=== PATIENT | female | born 1960 | race Caucasian/White ===

== ENCOUNTER 2017-10-14 13:57 | Inpatient (IN) | payer BC ==
[~2017-10-14] VITALS: Ht 165.1 cm; Wt 107.5 kg
[~2017-10-14 13:57] MED LIST: ADULT LOW DOSE81 M1 PO; BACTRIM,SEPT1 TABLE1 PO; CATAPRES0.2 MG PO; CELEXA20 MG PO; HYDROCHLOROTHIA25 MG PO; JANUMET 50/11 TABLET PO; LANTUS100 UNIT/1 SQ; LEVO-T75 MCG PO; LISINOPRIL20 MG PO; PERCOCET 5/31 TABLET PO; PRAVACHOL40 MG PO; PYRIDIUM100 MG PO; ULTRAM50 MG PO; VERAPAMIL HCL120 MG PO; WELCHOL625 MG PO
[2017-10-14 14:29] LABS: HEMATOCRIT 33.8 % (36.0-46.0); HEMOGLOBIN 11.7 G/DL (11.9-15.5); MCH 29.3 PG (29.0-34.0); MCHC 34.6 G/DL (30.0-36.0); MCV 84.7 FL (83-99); PLATELET COUNT 331 K/uL (156-360); RBC DIS.WIDTH-CV 13.2 % (11.8-14.6); RBC DIS.WIDTH-SD 40.1 % (39-53); RED BLOOD COUNT 3.99 M/uL (3.80-5.20); WHITE BLOOD COUNT 20.9 K/uL (4.1-10.2)
[2017-10-14 14:33] LABS: CARBON DIOXIDE (BICARBONATE) 20.7 MEQ/L (20-31)
[2017-10-14 15:02] LABS: ALKALINE PHOSPHATASE 122 IU/L (3-129); ALT (GPT) 16 IU/L (3-49); AST (GOT) 28 IU/L (2-34); CHLORIDE 88 MEQ/L (99-109); CREATININE 8.7 MG/DL (0.6-1.3); GFR ESTIMATE (CALCULATED) 5 mL/min/; LIPASE 18 U/L (1.0-51.0); POTASSIUM 5.3 MEQ/L (3.7-5.4); SODIUM 122 MEQ/L (136-147); TOTAL BILIRUBIN 0.6 MG/DL (0.0-1.0); TOTAL PROTEIN 7.8 G/DL (6.4-8.3); UREA NITROGEN (BUN) 79 mg/dL (9-23)
[2017-10-14 15:04] LABS: GLUCOSE 686 mg/dL (70-99)
[2017-10-14 16:20] LABS: APPEARANCE TURBID ((CLEAR)); BILIRUBIN NEGATIVE; BLOOD SMALL; COLOR YELLOW ((YELLOW)); GLUCOSE (STRIP) >=500; KETONES 5; LEUKOCYTES MODERATE; NITRITE NEGATIVE; PROTEIN (STRIP) >=500; SPECIFIC GRAVITY 1.021 (1.000-1.030); UROBILINOGEN 0.2 MG/DL (0.2-1.0)
[2017-10-14 16:24] LABS: BACTERIA 3+ /HPF; EPITHELIAL CELLS NONE SEEN /HPF; MUCUS NONE SEEN /LPF; UCUL ADDED? YES; WHITE BLOOD CELLS TNTC /HPF (0-5)
[2017-10-14 22:45] VITALS: BP 239/120
[2017-10-14 23:02] VITALS: BP 226/120
[2017-10-14 23:17] VITALS: BP 196/102
[2017-10-14] MEDS ORDERED: LEVOTHYROXINE75 MCG PO (23:23)
[2017-10-14] MEDS ORDERED: TRAMADOL HCL50 MG PO (23:24)
[2017-10-14] MEDS ORDERED: METOCLOPRAMIDE H5 MG PO (23:24)
[2017-10-14] MEDS ORDERED: CLONIDINE HCL0.2 MG PO (23:25)
[2017-10-14] MEDS ORDERED: CITALOPRAM HBR20 MG PO (23:25)
[2017-10-14] MEDS ORDERED: CALAN120 MG PO (23:26)
[2017-10-14] MEDS ORDERED: WELCHOL625 MG PO (23:27)
[2017-10-14] MEDS ORDERED: CALCITRIOL0.25 MCG PO (23:27)
[2017-10-14] MEDS ORDERED: LEVEMIR100 UNIT/2 SC (23:29)
[2017-10-14] MEDS ORDERED: TORSEMIDE20 MG PO (23:29)
[2017-10-14 23:32] VITALS: BP 178/87
[2017-10-15] VITALS (26 sets, daily range): BP systolic 97–185; BP diastolic 63–92
[2017-10-15 00:41] LABS: CHLORIDE 98 mEq/L (99-109)
[2017-10-15 00:47] LABS: CREATININE 8.5 mg/dL (0.6-1.3); GFR ESTIMATE (CALCULATED) 5 mL/min/; PHOSPHORUS 5.5 mg/dL (2.5-4.9)
[2017-10-15 00:48] LABS: UREA NITROGEN (BUN) 79 mg/dL (9-23)
[2017-10-15 00:50] LABS: GLUCOSE 319 mg/dL (70-99); POTASSIUM 4.1 mEq/L (3.7-5.4); SODIUM 132 mEq/L (136-147)
[2017-10-15 05:35] LABS: CHLORIDE 100 MEQ/L (99-109); CREATININE 8.3 MG/DL (0.6-1.3); GFR ESTIMATE (CALCULATED) 5 mL/min/; GLUCOSE 193 mg/dL (70-99); PHOSPHORUS 5.9 mg/dL (2.5-4.9); POTASSIUM 4.2 MEQ/L (3.7-5.4); SODIUM 132 MEQ/L (136-147); UREA NITROGEN (BUN) 79 mg/dL (9-23)
[2017-10-15 08:55] LABS: CHLORIDE 103 MEQ/L (99-109); CREATININE 8.5 MG/DL (0.6-1.3); GFR ESTIMATE (CALCULATED) 5 mL/min/; GLUCOSE 113 mg/dL (70-99); PHOSPHORUS 5.8 mg/dL (2.5-4.9); POTASSIUM 4.3 MEQ/L (3.7-5.4); SODIUM 134 MEQ/L (136-147); UREA NITROGEN (BUN) 76 mg/dL (9-23)
[2017-10-15] MEDS ORDERED: CRESTOR5 MG PO (10:30)
[2017-10-15] MEDS ORDERED: TYLENOL ARTHRI650 MG PO (10:31)
[2017-10-15] MEDS ORDERED: APRESOLINE50 MG PO (10:31)
[2017-10-15 11:08] LABS: INTER. NORMALIZED RATIO 1.3
[2017-10-15 11:11] LABS: PTT 26.7 SEC (25-37)
[2017-10-15 11:55] LABS: HEPATITIS B SURFACE ANTIGEN Nonreactive
[2017-10-15 11:56] LABS: HEPATITIS B SURFACE ANTIBODY Nonreactive
[2017-10-15 13:51] LABS: TROP-I INTERPRETATION INDETERMINATE; TROPONIN-I 0.46 ng/mL (0.0-0.30)
[2017-10-15 13:57] LABS: CHLORIDE 102 MEQ/L (99-109); CREATININE 8.4 MG/DL (0.6-1.3); GFR ESTIMATE (CALCULATED) 5 mL/min/; PHOSPHORUS 5.9 mg/dL (2.5-4.9); POTASSIUM 4.4 MEQ/L (3.7-5.4); SODIUM 135 MEQ/L (136-147); UREA NITROGEN (BUN) 77 mg/dL (9-23)
[2017-10-15 14:20] LABS: GLUCOSE 172 mg/dL (70-99)
[2017-10-15 16:27] LABS: CHLORIDE 99 MEQ/L (99-109); POTASSIUM 3.6 MEQ/L (3.7-5.4); SODIUM 132 MEQ/L (136-147)
[2017-10-15 16:32] LABS: GLUCOSE 136 mg/dL (70-99); UREA NITROGEN (BUN) 41 mg/dL (9-23)
[2017-10-15 16:35] LABS: CREATININE 4.9 MG/DL (0.6-1.3); GFR ESTIMATE (CALCULATED) 10 mL/min/; PHOSPHORUS 3.4 mg/dL (2.5-4.9)
[2017-10-15 20:11] LABS: CHLORIDE 99 MEQ/L (99-109); POTASSIUM 3.9 MEQ/L (3.7-5.4); SODIUM 131 MEQ/L (136-147)
[2017-10-15 20:17] LABS: CREATININE 5.7 MG/DL (0.6-1.3); GFR ESTIMATE (CALCULATED) 8 mL/min/; GLUCOSE 174 mg/dL (70-99); PHOSPHORUS 4.2 mg/dL (2.5-4.9); UREA NITROGEN (BUN) 45 mg/dL (9-23)
[2017-10-16] VITALS (8 sets, daily range): BP systolic 118–183; BP diastolic 58–81
[2017-10-16 05:48] LABS: BASOPHIL (%) 0.1 % (0-1); EOSINOPHIL (%) 0.1 % (0-5); HEMATOCRIT 26.6 % (36.0-46.0); LYMPHOCYTE (%) 12.5 % (15-42); LYMPHOCYTE COUNT 2.3 K/uL (1.0-2.8); MCH 28.4 PG (29.0-34.0); MCHC 32.3 G/DL (30.0-36.0); MCV 87.8 FL (83-99); MONOCYTE (%) 7.7 % (3-12); MONOCYTE COUNT 1.4 K/uL (0-0.8); NEUTROPHIL (%) 78.6 % (45-76); NEUTROPHIL COUNT 14.6 K/uL (1.8-6.4); PLATELET COUNT 235 K/uL (156-360); RBC DIS.WIDTH-CV 13.6 % (11.8-14.6); WHITE BLOOD COUNT 18.6 K/uL (4.1-10.2)
[2017-10-16 06:04] LABS: HEMOGLOBIN 8.6 G/DL (11.9-15.5); RED BLOOD COUNT 3.03 M/uL (3.80-5.20)
[2017-10-16 06:22] LABS: CHLORIDE 101 MEQ/L (99-109); CREATININE 6.3 MG/DL (0.6-1.3); GFR ESTIMATE (CALCULATED) 7 mL/min/; POTASSIUM 4.1 MEQ/L (3.7-5.4); SODIUM 134 MEQ/L (136-147); UREA NITROGEN (BUN) 54 mg/dL (9-23)
[2017-10-16 06:28] LABS: GLUCOSE 80 mg/dL (70-99)
[2017-10-16 08:15] LABS: HEMOGLOBIN 9.4 G/DL (11.9-15.5); MCH 29.7 PG (29.0-34.0); MCHC 33.6 G/DL (30.0-36.0); MCV 88.3 FL (83-99); PLATELET COUNT 264 K/uL (156-360); RBC DIS.WIDTH-CV 13.6 % (11.8-14.6); RED BLOOD COUNT 3.17 M/uL (3.80-5.20); WHITE BLOOD COUNT 19.9 K/uL (4.1-10.2)
[2017-10-17] VITALS (7 sets, daily range): BP systolic 142–186; BP diastolic 64–93
[2017-10-17 05:54] LABS: BASOPHIL (%) 0.2 % (0-1); EOSINOPHIL (%) 0.5 % (0-5); EOSINOPHIL COUNT 0.1 K/uL (0-0.3); HEMATOCRIT 26.7 % (36.0-46.0); HEMOGLOBIN 8.8 G/DL (11.9-15.5); IMMATURE GRANULOCYTE (%) 1.8 % (0.0-0.7); LYMPHOCYTE (%) 19.8 % (15-42); LYMPHOCYTE COUNT 2.8 K/uL (1.0-2.8); MCH 29.6 PG (29.0-34.0); MCV 89.9 FL (83-99); MONOCYTE (%) 9.5 % (3-12); MONOCYTE COUNT 1.3 K/uL (0-0.8); NEUTROPHIL (%) 68.2 % (45-76); NEUTROPHIL COUNT 9.6 K/uL (1.8-6.4); PLATELET COUNT 205 K/uL (156-360); RBC DIS.WIDTH-CV 13.5 % (11.8-14.6); RED BLOOD COUNT 2.97 M/uL (3.80-5.20); WHITE BLOOD COUNT 14.1 K/uL (4.1-10.2)
[2017-10-17 06:29] LABS: CHLORIDE 99 MEQ/L (99-109); GFR ESTIMATE (CALCULATED) 9 mL/min/; POTASSIUM 4.3 MEQ/L (3.7-5.4); SODIUM 132 MEQ/L (136-147); UREA NITROGEN (BUN) 34 mg/dL (9-23)
[2017-10-17 06:31] LABS: CREATININE 5.2 MG/DL (0.6-1.3); GLUCOSE 141 mg/dL (70-99)
[2017-10-18] VITALS: BP 169/77
[2017-10-18 04:02] VITALS: BP 160/68
[2017-10-18 06:04] LABS: BASOPHIL (%) 0.3 % (0-1); EOSINOPHIL (%) 2.7 % (0-5); EOSINOPHIL COUNT 0.3 K/uL (0-0.3); HEMATOCRIT 26.5 % (36.0-46.0); HEMOGLOBIN 8.5 G/DL (11.9-15.5); IMMATURE GRANULOCYTE (%) 1.1 % (0.0-0.7); LYMPHOCYTE (%) 18.7 % (15-42); LYMPHOCYTE COUNT 2.1 K/uL (1.0-2.8); MCH 28.8 PG (29.0-34.0); MCHC 32.1 G/DL (30.0-36.0); MCV 89.8 FL (83-99); MONOCYTE (%) 9.8 % (3-12); MONOCYTE COUNT 1.1 K/uL (0-0.8); NEUTROPHIL (%) 67.4 % (45-76); NEUTROPHIL COUNT 7.6 K/uL (1.8-6.4); PLATELET COUNT 176 K/uL (156-360); RBC DIS.WIDTH-CV 13.2 % (11.8-14.6); RBC DIS.WIDTH-SD 43.4 % (39-53); RED BLOOD COUNT 2.95 M/uL (3.80-5.20); WHITE BLOOD COUNT 11.3 K/uL (4.1-10.2)
[2017-10-18 06:33] LABS: CHLORIDE 101 MEQ/L (99-109); CREATININE 6.1 MG/DL (0.6-1.3); GFR ESTIMATE (CALCULATED) 7 mL/min/; GLUCOSE 86 mg/dL (70-99); POTASSIUM 4.3 MEQ/L (3.7-5.4); SODIUM 133 MEQ/L (136-147); UREA NITROGEN (BUN) 45 mg/dL (9-23); VANCOMYCIN, TROUGH 10.4 MCG/ML (10-20)
[2017-10-18 07:51] VITALS: BP 210/78
[2017-10-18 12:10] VITALS: BP 218/84
[2017-10-18 15:27] VITALS: BP 157/80
[2017-10-18 20:03] VITALS: BP 148/52
[2017-10-19 00:21] VITALS: BP 148/70
[2017-10-19 04:03] VITALS: BP 178/70
[2017-10-19 05:17] LABS: BASOPHIL (%) 0.2 % (0-1); EOSINOPHIL COUNT 0.5 K/uL (0-0.3); HEMATOCRIT 27.9 % (36.0-46.0); IMMATURE GRANULOCYTE (%) 1.2 % (0.0-0.7); LYMPHOCYTE (%) 19.5 % (15-42); LYMPHOCYTE COUNT 2.2 K/uL (1.0-2.8); MCH 28.7 PG (29.0-34.0); MCHC 32.3 G/DL (30.0-36.0); MCV 88.9 FL (83-99); MONOCYTE (%) 10.9 % (3-12); MONOCYTE COUNT 1.2 K/uL (0-0.8); NEUTROPHIL (%) 64.2 % (45-76); NEUTROPHIL COUNT 7.2 K/uL (1.8-6.4); PLATELET COUNT 206 K/uL (156-360); RBC DIS.WIDTH-CV 13.2 % (11.8-14.6); RBC DIS.WIDTH-SD 42.7 % (39-53); RED BLOOD COUNT 3.14 M/uL (3.80-5.20); WHITE BLOOD COUNT 11.2 K/uL (4.1-10.2)
[2017-10-19 05:34] LABS: CHLORIDE 100 MEQ/L (99-109); POTASSIUM 4.1 MEQ/L (3.7-5.4); SODIUM 134 MEQ/L (136-147)
[2017-10-19 05:45] LABS: CREATININE 4.5 MG/DL (0.6-1.3); GFR ESTIMATE (CALCULATED) 11 mL/min/; GLUCOSE 120 mg/dL (70-99); UREA NITROGEN (BUN) 26 mg/dL (9-23)
[2017-10-19 08:10] VITALS: BP 184/84
[2017-10-19 16:12] VITALS: BP 148/82
[2017-10-19 19:19] VITALS: BP 125/58
[2017-10-19 23:45] VITALS: BP 148/67
[2017-10-20 04:02] VITALS: BP 158/74
[2017-10-20 07:38] VITALS: BP 162/80
[2017-10-20 08:22] LABS: HEMOGLOBIN 8.8 G/DL (11.9-15.5); MCH 29.5 PG (29.0-34.0); MCHC 32.6 G/DL (30.0-36.0); MCV 90.6 FL (83-99); PLATELET COUNT 223 K/uL (156-360); RBC DIS.WIDTH-CV 13.4 % (11.8-14.6); RED BLOOD COUNT 2.98 M/uL (3.80-5.20); WHITE BLOOD COUNT 10.9 K/uL (4.1-10.2)
[2017-10-20 08:43] LABS: CHLORIDE 99 MEQ/L (99-109); SODIUM 133 MEQ/L (136-147)
[2017-10-20 08:51] LABS: CREATININE 5.6 MG/DL (0.6-1.3); GFR ESTIMATE (CALCULATED) 8 mL/min/; GLUCOSE 152 mg/dL (70-99); UREA NITROGEN (BUN) 31 mg/dL (9-23)
[2017-10-20 15:58] VITALS: BP 169/77
[2017-10-20 19:59] VITALS: BP 148/50
[2017-10-21 00:22] VITALS: BP 130/64
[2017-10-21 04:24] VITALS: BP 121/58
[2017-10-21 06:53] LABS: IRON 37 MCG/DL (35-150); TRANSFERRIN (TIBC) 178.7 mg/dL (215-380); TRANSFERRIN SATUR. 21 % (20-55)
[2017-10-21 08:19] VITALS: BP 150/78
[2017-10-21 11:38] VITALS: BP 142/71
[2017-10-21 17:08] VITALS: BP 144/70
[2017-10-21 20:02] VITALS: BP 136/50
[2017-10-22 00:01] VITALS: BP 118/70
[2017-10-22 03:49] VITALS: BP 92/58
[2017-10-22 07:25] VITALS: BP 176/81
[2017-10-22 11:28] VITALS: BP 128/61
[2017-10-22 15:36] VITALS: BP 133/60
[2017-10-22] MEDS ORDERED: CARVEDILOL25 MG PO (15:50)
[2017-10-22] MEDS ORDERED: LOSARTAN POTASS50 MG PO (15:51)
[2017-10-22] MEDS ORDERED: LASIX40 MG PO (15:52)
== END 2017-10-22 19:30 | disposition home or self-care (01) | DRG 682 ==
LOC: EME 13:57 → EDOF 20:39 → 5SOUTH 20:39 → ENRESERV 20:43 → 4WEST 22:36 → ENRESERV 10-16 09:09 → 4EAST 10-16 10:55 → ENRESERV 10-17 13:36 → 5SOUTH 10-17 15:52 → ENPENDDIS 10-22 15:54 → 5SOUTH 10-22 19:30
PROVIDERS: Emergency Medicine; Internal Medicine; Internal Medicine Critical Care Medicine; Internal Medicine Nephrology; Specialist
DX: N17.9 Acute kidney failure, unspecified (principal); E11.10 Type 2 diabetes mellitus with ketoacidosis without coma; I16.1 Hypertensive emergency; E87.1 Hypo-osmolality and hyponatremia; E86.0 Dehydration; E83.39 Other disorders of phosphorus metabolism; N39.0 Urinary tract infection, site not specified; K52.9 Noninfective gastroenteritis and colitis, unspecified; I12.0 Hypertensive chronic kidney disease with stage 5 chronic kidney disease or end stage renal disease; E11.22 Type 2 diabetes mellitus with diabetic chronic kidney disease; N18.6 End stage renal disease; D63.1 Anemia in chronic kidney disease; E78.5 Hyperlipidemia, unspecified; K21.9 Gastro-esophageal reflux disease without esophagitis; K57.30 Diverticulosis of large intestine without perforation or abscess without bleeding; E66.01 Morbid (severe) obesity due to excess calories; Z91.19 Patient's noncompliance with other medical treatment and regimen; Z68.41 Body mass index [BMI] 40.0-44.9, adult; Z79.4 Long term (current) use of insulin
CPT/HCPCS: 71045; 74176; 80048; 80048 91; 80053; 80202; 81003; 82010; 82803; 82948; 83036; 83540; 83605; 83690; 84100; 84466; 84484; 85025; 85027; 85610; 85730; 86706; 86850; 86900; 86901; 87040; 87086; 87340; 87493; 87641; 93005; 99281; 99285; C1750; C1788; C9113; J0360; J0690; J0692; J1644; J1815; J1956; J2060; J2250; J2405; J2765; J3010; J3370; J7030; J7050; S0020; S0028; S0030

== ENCOUNTER 2018-01-09 07:25 | Day surgery (SDC) | payer BC ==
[~2018-01-09] VITALS: Ht 165.1 cm; Wt 103.0 kg
[~2018-01-09 07:25] MED LIST changes: +APRESOLINE50 MG PO; +CALAN120 MG PO; +CALCITRIOL0.25 MCG PO; +CARVEDILOL25 MG PO; +CITALOPRAM HBR20 MG PO; +CLONIDINE HCL0.2 MG PO; +CRESTOR5 MG PO; +LASIX40 MG PO; +LEVEMIR100 UNIT/2 SC; +LEVOTHYROXINE75 MCG PO; +LOSARTAN POTASS50 MG PO; +METOCLOPRAMIDE H5 MG PO; +REGLAN5 MG PO; +TORSEMIDE20 MG PO; +TRAMADOL HCL50 MG PO; +TYLENOL ARTHRI650 MG PO
[2018-01-09 08:02] VITALS: BP 160/76
[2018-01-09 08:07] LABS: HEMATOCRIT 32.2 % (36.0-46.0); MCH 30.5 PG (29.0-34.0); MCHC 33.2 G/DL (30.0-36.0); MCV 91.7 FL (83-99); PLATELET COUNT 215 K/uL (156-360); RBC DIS.WIDTH-CV 13.6 % (11.8-14.6); RBC DIS.WIDTH-SD 45.1 % (39-53); RED BLOOD COUNT 3.51 M/uL (3.80-5.20); WHITE BLOOD COUNT 8.7 K/uL (4.1-10.2)
[2018-01-09 08:19] LABS: HEMOGLOBIN 10.7 G/DL (11.9-15.5)
[2018-01-09 09:41] LABS: CHLORIDE 100 MEQ/L (99-109); CREATININE 5.9 MG/DL (0.6-1.3); GFR ESTIMATE (CALCULATED) 8 mL/min/; GLUCOSE 127 mg/dL (70-99); POTASSIUM 4.9 MEQ/L (3.7-5.4); SODIUM 136 MEQ/L (136-147); UREA NITROGEN (BUN) 46 mg/dL (9-23)
[2018-01-09 17:20] VITALS: BP 169/79
[2018-01-09 18:13] VITALS: BP 140/72
== END 2018-01-09 18:20 | disposition home or self-care (01) ==
LOC: SDC 07:25
PROVIDERS: Surgery
DX: I12.0 Hypertensive chronic kidney disease with stage 5 chronic kidney disease or end stage renal disease (principal); E11.22 Type 2 diabetes mellitus with diabetic chronic kidney disease; N18.6 End stage renal disease; Z99.2 Dependence on renal dialysis; Z79.4 Long term (current) use of insulin; E03.9 Hypothyroidism, unspecified; R94.31 Abnormal electrocardiogram [ECG] [EKG]
CPT/HCPCS: 80048; 82948; 85027; 87641; 93005; C1768; J0360; J0690; J1644; J2250; J2720; J3010